=== PATIENT | female | born 1995 | race Caucasian/White ===

== ENCOUNTER 2016-11-05 22:48 | Emergency (ER) | payer OTHER ==
[2016-11-05 23:11] VITALS: BP 101/50; PULSE 61; TEMP 98.9; BMI 27.9
[2016-11-06 00:28] LABS: BASOPHIL 0.9 % (0-2.0); EOSINOPHIL 4.2 % (0-4.5); MCH 31.6 pg (25.7-33.7); MCHC 34.1 g/dl (32.0-36.0); MEAN CELL VOLUME 92.5 fl (80-96); MEAN PLT VOLUME 9.2 fl (7.5-11.1); PLATELET COUNT 253 K/MM3 (134-434); RDW 13.6 % (11.6-15.6); WHITE BLOOD COUNT 6.9 K/mm3 (4.0-10.0)
[2016-11-06 00:35] LABS: URINE APPEARANCE CLEAR; URINE BILIRUBIN NEGATIVE (NEGATIVE); URINE BLOOD 3+ (NEGATIVE); URINE COLOR LT. YELLOW; URINE GLUCOSE (UA) NEGATIVE (NEGATIVE); URINE KETONE NEGATIVE (NEGATIVE); URINE LEUK ESTERASE NEGATIVE (NEGATIVE); URINE NITRITE NEGATIVE (NEGATIVE); URINE PROTEIN NEGATIVE (NEGATIVE); URINE UROBILINOGEN 0.2 mg/dL (0.2-1.0)
[2016-11-06 00:42] LABS: URINE MUCUS RARE; URINE RBC 34 /hpf (0-3); URINE WBC 2 /hpf (3-5)
--- NOTE | 2016-11-06 01:28 | PDOC ---
History of Present Illness - General History Source: Patient Exam Limitations: No Limitations - History of Present Illness Initial Comments: 11/06/16 01:28 The patient is a 20-year-old female, with a significant past medical history, who presents to the ED with vaginal bleeding that began yesterday. The patient has been experiencing bleeding for the past couple of months. She visited her OB /SALES APPRENTICE doctor and had imaging done revealing two cysts; one on the right ovary and one on the left ovary. The imaging also revealed that she had a bleeding cyst. She is also undergoing further imaging to rule out if the bleeding cyst is malignant or not. What worried the patient yesterday was that the bleeding was much heavier than usual and the blood appeared to be bright red instead of dark red how it usually appears. Pt [facility] she was 2 weeks . Her last menstrual period was on October 13. She reports having some mild cramping which is normal for her when she experiences the bleeding. She denies any nausea, vomiting, or diarrhea. PCP: Dr. Spring <Mayi Cannon - Last Filed: 11/06/16 01:28> <Elvis Goodwin - Last Filed: 11/06/16 02:10> - General Chief Complaint: Vaginal Bleeding Stated Complaint: VAGINAL BLEEDING Time Seen by Provider: 11/05/16 23:23 Past History <Mayi Cannon - Last Filed: 11/06/16 01:28> - Past Medical History Other medical history: Pt denies - Immunization History Immunization Up to Date: Yes - Psycho/Social/Smoking Cessation Hx Anxiety: No Suicidal Ideation: No Smoking Status: Yes Smoking History: Never smoked Number of Cigarettes Smoked Daily: 1 Information on smoking cessation initiated: No Hx Alcohol Use: No Drug/Substance Use Hx: No Substance Use Type: None <Elvis Goodwin - Last Filed: 11/06/16 02:10> - Past Medical History Allergies/Adverse Reactions: Allergies Allergy/AdvReac Type Severity Reaction Status Date / Time No Known Allergies Allergy Verified 11/05/16 23:06 Home Medications: Ambulatory Orders NK [No Known Home Medication] 11/06/16 Review of Systems - Review of Systems Able to Perform ROS?: Yes Comments:: 11/06/16 01:29 GENERAL/CONSTITUTIONAL: No fever or chills. No weakness. HEAD, EYES, EARS, NOSE AND THROAT: No change in vision. No ear pain or discharge. No sore throat. CARDIOVASCULAR: No chest pain or shortness of breath. RESPIRATORY: No cough, wheezing, or hemoptysis. SKIN: No rash GASTROINTESTINAL:+cramping. No nausea, vomiting, diarrhea or constipation. GENITOURINARY:+vaginal bleeding. No dysuria, frequency, or change in urination. MUSCULOSKELETAL: No joint swelling or pain. No neck or back pain. NEUROLOGIC: No headache, vertigo, loss of consciousness, or change in strength/ sensation. ENDOCRINE: No increased thirst. No abnormal weight change. HEMATOLOGIC/LYMPHATIC: No anemia, easy bleeding, or history of blood clots. ALLERGIC/IMMUNOLOGIC: No hives or skin allergy. <Mayi Cannon - Last Filed: 11/06/16 01:28> *Physical Exam - Vital Signs Last Vital Signs Temp Pulse Resp BP Pulse Ox 98.9 F 61 18 101/50 98 11/05/16 23:07 11/05/16 23:07 11/05/16 23:07 11/05/16 23:07 11/05/16 23:07 - Physical Exam Comments: 11/06/16 01:30 GENERAL: Awake, alert, and fully oriented, in no acute distress HEAD: No signs of trauma ENT: Auricles normal inspection, hearing grossly normal, nares patent, oropharynx clear EYES: PERRLA, EOMI, sclera anicteric, conjunctiva clear without exudates. Moist mucosa. NECK: Normal ROM, supple, no lymphadenopathy, JVD, or masses LUNGS: Breath sounds equal, clear to auscultation bilaterally. No wheezes, and no crackles HEART: Regular rate and rhythm, normal S1 and S2, no murmurs, rubs or gallops ABDOMEN: Soft, nontender, normoactive bowel sounds. No guarding, no rebound. No masses EXTREMITIES: Normal range of motion, no edema. No clubbing or cyanosis. No cords, erythema, or tenderness NEUROLOGICAL: Cranial nerves II through XII grossly intact. Normal speech, normal gait SKIN: Warm, Dry, normal turgor, no rashes or lesions noted PELVIC EXAM: Cervix was closed. Little blood oozing from cervical os. No pooling of blood vaginal vault. Uterus was normal in size, no tenderness. No adnexal tenderness or fullness. <Mayi Cannon - Last Filed: 11/06/16 01:28> - Vital Signs Last Vital Signs Temp Pulse Resp BP Pulse Ox 98.9 F 61 18 101/50 98 11/05/16 23:07 11/05/16 23:07 11/05/16 23:07 11/05/16 23:07 11/05/16 23:07 <Elvis Goodwin - Last Filed: 11/06/16 02:10> ED Treatment Course - LABORATORY CBC & Chemistry Diagram: 11/06/16 00:13 - ADDITIONAL ORDERS Additional order review: Laboratory Results 11/06/16 11/06/16 00:15 00:13 Beta HCG, Quant 1.8 Urine Color Lt. yellow Urine Appearance Clear Urine pH 7.0 Urine Protein Negative Urine Glucose (UA) Negative Urine Ketones Negative Urine Blood 3+ H Urine Nitrite Negative Urine Bilirubin Negative Urine Urobilinogen 0.2 Ur Leukocyte Esterase Negative Urine RBC 34 Urine WBC 2 Ur Epithelial Cells Rare Urine Mucus Rare Urine HCG, Qual Negative 11/06/16 00:13 RBC 3.58 L MCV 92.5 MCHC 34.1 RDW 13.6 MPV 9.2 Neutrophils % 53.0 Lymphocytes % 35.0 Monocytes % 6.9 Eosinophils % 4.2 Basophils % 0.9 <Mayi Cannon - Last Filed: 11/06/16 01:28> - LABORATORY CBC & Chemistry Diagram: 11/06/16 00:13 - ADDITIONAL ORDERS Additional order review: Laboratory Results 11/06/16 11/06/16 00:15 00:13 Beta HCG, Quant 1.8 Urine Color Lt. yellow Urine Appearance Clear Urine pH 7.0 Urine Protein Negative Urine Glucose (UA) Negative Urine Ketones Negative Urine Blood 3+ H Urine Nitrite Negative Urine Bilirubin Negative Urine Urobilinogen 0.2 Ur Leukocyte Esterase Negative Urine RBC 34 Urine WBC 2 Ur Epithelial Cells Rare Urine Mucus Rare Urine HCG, Qual Negative 11/06/16 00:13 RBC 3.58 L MCV 92.5 MCHC 34.1 RDW 13.6 MPV 9.2 Neutrophils % 53.0 Lymphocytes % 35.0 Monocytes % 6.9 Eosinophils % 4.2 Basophils % 0.9 - RADIOLOGY Radiology Studies Ordered: Category Date Time Status TRANSVAGINAL US PREG [US] Stat Ultrasound 11/06/16 00:02 Ordered <Elvis Goodwin - Last Filed: 11/06/16 02:10> *DC/Admit/Observation/Transfer - Attestations Scribe Attestion: 11/06/16 01:31 Documentation prepared by Mayi Cannon, acting as medical research scientist for Elvis Goodwin MD. <Mayi Cannon - Last Filed: 11/06/16 01:28> - Discharge Dispostion Admit: No - Attestations Physician Attestion: 11/06/16 01:28 I, Dr. Elvis Goodwin, attest that this document has been prepared under my direction and personally reviewed by me in its entirety. I further attest, that it accurately reflects all work, treatment, procedures and medical decision -making performed by me. <Elvis Goodwin - Last Filed: 11/06/16 02:10> Diagnosis at time of Disposition: Inevitable complete miscarriage without complication - Discharge Dispostion Disposition: HOME Condition at time of disposition: Good - Referrals Referrals: Nikole Spring MD [Primary Care Provider] - Cadence Pitts MD [Staff Physician] - - Patient Instructions Printed Discharge Instructions: Miscarriage, DI for Miscarriage, Dealing With Miscarriage Additional Instructions: Sorry this happened...... Return to us if worse..... FOLLOW UP WITH YOUR OB DOCTOR to make sure everything is completed. Best- Dr. Elvis Goodwin
== END 2016-11-06 03:01 | disposition home or self-care (01) ==
LOC: JER 22:48
DX: O26.891 Other specified pregnancy related conditions, first trimester (principal); O03.9 Complete or unspecified spontaneous abortion without complication
CPT/HCPCS: 36415; 76817-TC; 81003; 81015; 84702; 84703; 85025; 86850; 86900; 86901; 99282-25

== ENCOUNTER → 2018-09-30 | Day surgery (SDC) | payer OTHER | END | disposition home or self-care (01) | LOC: JRADIR 09:23 | PROVIDERS: ATTEND Obstetrics & Gynecology | PROC: BU18YZZ Fluoroscopy of Uterus and Fallopian Tubes using Other Contrast (ICD-10-PCS; principal; 2018-09-30) | DX: N97.9 Female infertility, unspecified (principal) | CPT/HCPCS: 36415; 58340; 74740-TC-FY; 76000-TC-FY; 84702 ==

== ENCOUNTER 2019-03-08 23:15 | Emergency (ER) | payer OTHER ==
[2019-03-08 23:34] VITALS: BP 160/100; PULSE 104; TEMP 98.8; BMI 32.1
[2019-03-09] MEDS ORDERED: ACETAMINOPHEN 325 MG TABLET (FP) PO ONE (00:12)
--- NOTE | 2019-03-09 00:12 | PDOC ---
History of Present Illness - General Chief Complaint: Injury Stated Complaint: LACERATION Time Seen by Provider: 03/09/19 00:11 - History of Present Illness Initial Comments: Lenka Montoya is a 23yo otherwise healthy woman, currently 7wks , who presents with an injury to the right ear after a fall at home today. She reports that she was feeling nauseated, and she was trying to run to the bathroom. Her puppy got in the way, and she tripped and fell forward, striking her ear on the side of her stepson's crib. She denies LOC and was able to get up and ambulate immediate following the fall. She denies any injury to her abdomen, abdominal pain, vaginal bleeding, or any concerns about her current . Past History - Past Medical History Allergies/Adverse Reactions: Allergies Allergy/AdvReac Type Severity Reaction Status Date / Time No Known Allergies Allergy Verified 03/08/19 23:34 Home Medications: Ambulatory Orders NK [No Known Home Medication] 11/06/16 COPD: No Other medical history: DENIES - Reproductive History Therapeutic (s) & number: No - Immunization History Immunization Up to Date: Yes - Psycho Social/Smoking Cessation Hx Smoking Status: Yes Smoking History: Never smoked Have you smoked in the past 12 months: No Number of Cigarettes Smoked Daily: 1 Information on smoking cessation initiated: No Hx Alcohol Use: No Drug/Substance Use Hx: No Substance Use Type: None Review of Systems - Review of Systems Comments:: General: No fevers, no chills, no weight or appetite change, no malaise HEENT: No changes in vision, no changes in hearing, no congestion, no sore throat. See HPI CV: No chest pain, no palpitations, no LE edema Pulm: No SOB, no cough, no wheezing GI: No nausea or vomiting, no change in bowel habits, no melena : No frequency, no urgency, no dysuria Musc: No back pain, no joint swelling, no recent injury Skin: No rash, no lesions, no erythema Endo: No excessive thirst, no heat/cold intolerance Heme: No unusual bruising or bleeding, no swollen glands Neuro: No syncope, no numbness/tingling, no focal weakness Vasc: No claudication Psych: No recent change in mood, no SI or HI *Physical Exam - Vital Signs Last Vital Signs Temp Pulse Resp BP Pulse Ox 98.8 F 104 H 20 160/100 98 03/08/19 23:30 03/08/19 23:30 03/08/19 23:30 03/08/19 23:30 03/08/19 23:30 - Physical Exam General: Comfortable, no acute distress HEENT: PERRL, EOMI, MMM, voice normal. Rt upper pinna w/ [id number] laceration, approximately 1cm, no active bleeding, dried blood around ear. Cards: RRR, no murmur appreciated Pulm: Comfortable on room air, clear to auscultation bilaterally Abd: Soft, nontender, nondistended Ext: Atraumatic. No LE edema. ROM intact. WWP Skin: Normal color, no rashes or lesions Neuro: A&Ox3, CN grossly intact, normal speech, motor/sensory grossly intact and symmetric Psych: Mood appropriate to situation Procedures - Laceration/Wound Repair Right Ear Wound Length: to 2.5 cm Wound Explored: clean Wound's Depth, Shape: linear (Through and through laceration) Irrigated w/ Saline: Yes Betadine Prep: No Amount of Anesthetic (ccs): 2 Wound Debrided: None Wound Repaired With: Sutures Suture Size/Type: 5:0, proline Number of Sutures: 9 (5 anterior, 4 posterior) Layer Closure: No Sterile Dressing Applied: Yes Splint Applied: No (Pressure dressing applied) Medical Decision Making - Medical Decision Making 03/09/19 00:11 Lenka Montoya is a 23yo otherwise healthy woman, currently 7wks , who presents with an injury to the right ear after a mechanical fall at home. - Acetaminophen for pain - Ear lac will likely require repair. Plan to anesthetize and clean wound, will reassess - Preg US to ensure no injury to the - Pt reports tetanus updated when she had a dog bite several years ago. 03/09/19 02:23 - Ear laceration anestetized with 2cc of 2% lidocaine - Wound irrigated with copious sterile saline - Laceration re-examined. Noted to be a [id number] laceration to the right ear pinna, linear, approximately 1.3cm in length, with no active bleeding. Wound edges re-approximated without tension - Laceration sutured using 5-0 proline. 4 simple interrupted posteriorly, 5 simple interrupted stitches anteriorly. Pressure dressing applied with xeroform over laceration, dry gauze around ear, SEAN wrap placed. - Pt taken for US given fall. US completed, IUP visualized, FHR 158, gestational age 7w0d. Waiting for final read. Plan to d/c home with ENT follow up pending read 03/09/19 02:43 - Radiology report agrees w/ ED read of US - Discussed home care, laceration care instructions, importance of ENT follow up at length. Pt states understanding and agreement. Will discharge home. Discussed with Dr Juan Wolfe PGY2 Discharge - Discharge Information Problems reviewed: Yes Clinical Impression/Diagnosis: Laceration of auricle of right ear Qualifiers: Encounter type: initial encounter Qualified Code(s): S01.311A - Laceration without foreign body of right ear, initial encounter Condition: Stable Disposition: HOME - Admission No - Follow up/Referral Referrals: Henok Ham MD [Staff Physician] - - Patient Discharge Instructions Patient Printed Discharge Instructions: DI for Laceration Repair Additional Instructions: Discharge Instructions: You were seen in the emergency department with a laceration to your right ear. The laceration was repaired with 9 stitches total (4 in the back, 5 in the front ) Home Care: - You should avoid getting the wound wet and keep your pressure dressing in place until you are seen by ENT (hearing impaired teacher). - Once you see ENT, you may wash your hair and shower normally. It is OK to use a plain soap and allow water to run over the wound. Do not scrub at the wound, and pat dry after washing. Do not rub with a towel. - Do not apply any lotions, ointments, creams or other topical medications to the wound - Some redness and swelling is expected after an injury. You may see a small amount of bleeding or pinkish drainage on the bandage when you remove it. This is normal. - You may use acetaminophen (Tylenol) 650-1000mg every 6-8 hours as needed for pain. Follow Up: - Make an appointment to follow up with an ENT specialist within the next 4-5 days. You have been given contact information for Dr Ham. - Follow the ENT doctor's instructions about when your stitches should be removed. It is usually about 7 days. - Seek immediate medical care if your wound becomes significantly more painful, swollen, red, you have a large amount of thick drainage, you have fevers to 101F or higher, or you have red streaking from the wound. - Post Discharge Activity
--- NOTE | 2019-03-09 00:16 | PDOC ---
Attending Attestation - Resident Resident Name: Juju Wolfe - ED Attending Attestation I have performed the following: I have examined & evaluated the patient, The case was reviewed & discussed with the resident, I agree w/resident's findings & plan, Exceptions are as noted - HPI HPI: 03/09/19 01:10 Ms. Montoya is a 23-year-old female presenting to the emergency department status post a fall from standing height. Patient states she was in her usual state of health, currently has morning sickness because she is 7 weeks . She was in route to the bathroom tripped and struck the left side of her face and ear. No loss of consciousness. No amnesia. Patient states that the age of the baby's crib struck her left ear. - Physicial Exam PE: 03/09/19 00:16 GENERAL: The patient is in no acute distress. HEENT: EOMI, PERRLA, moist mucous membranes. NECK: Normal range of motion, supple, no midline tenderness LUNGS: Breath sounds equal, clear to auscultation bilaterally. No wheezes, and no crackles. HEART:Regular rate and rhythm, normal S1 and S2 without murmur, rub or gallop. ABDOMEN: Soft, nontender, normoactive bowel sounds. EXTREMITIES: Normal range of motion, no edema. NEUROLOGICAL: Cranial nerves II through XII grossly intact. Normal speech. No focal neurological deficits. SKIN: Pinna of the left ear with laceration that is through cartilage, no active bleeding 03/09/19 01:11 - Medical Decision Making 03/09/19 01:11 Ms. Montoya is a 23-year-old female presenting to the emergency department with a injury to her left pinna Patient is currently 7 weeks Status post fall We will do: Transvaginal ultrasound -assess Suture repair Boostrix ABX D/c with ENT Follow up
[2019-03-09] MEDS ORDERED: ACETAMINOPHEN 325 MG TABLET (FP) ONE (00:21)
== END 2019-03-09 02:56 | disposition home or self-care (01) ==
LOC: JER 23:15
PROC: 0HQ2XZZ Repair Right Ear Skin, External Approach (ICD-10-PCS; principal; 2019-03-08)
DX: O26.891 Other specified pregnancy related conditions, first trimester (principal); S01.311A Laceration without foreign body of right ear, initial encounter
CPT/HCPCS: 76801-TC; 99283-25

== ENCOUNTER 2019-10-20 19:20 | Inpatient (IN) | payer OTHER ==
[2019-10-20 21:32] VITALS: BMI 38.9
--- NOTE | 2019-10-20 21:51 | HP ---
Past Medical History - Primary Care Physician PCP:: Lashay Madera - Admission Chief Complaint: Induction of labor History of Present Illness: 23 yo EDC 10/23/2019 EGA 39 weeks admitted for induction of labor +obesity History Source: Patient Limitations to Obtaining History: No Limitations - Past Medical History ...: 2 ...Para: 0 ...Term: 0 ...: 0 ...Spon : 1 ...Induced : 0 ...Living Children: 0 ...Multiple Gestation: 0 ...LMP: 01/13/19 ... Weeks Gestation by Dates: 39.4 ...EDC by Dates: 10/23/19 - Past Surgical History Past Surgical History: Yes: None Hx Myomectomy: No Hx Transabdominal Cerclage: No - Smoking History Smoking history: Former smoker Have you smoked in the past 12 months: Yes Aproximately how many cigarettes per day: 4 If you are a former smoker, when did you quit?: 03/2019 - Alcohol/Substance Use Hx Alcohol Use: No History of Substance Use: reports: None - Social History Usual Living Arrangement: Yes: With Spouse Do you think of yourself as: Straight/Heterosexual History of Recent Travel: No Home Medications - Allergies Allergies/Adverse Reactions: Allergies Allergy/AdvReac Type Severity Reaction Status Date / Time No Known Allergies Allergy Verified 03/08/19 23:34 - Home Medications Home Medications: Ambulatory Orders Ibuprofen [Motrin -] 600 mg PO QID #28 tablet 10/21/19 Amox-Tr/K Cl [Augmentin - 500Mg Tablet] 1 tab PO BID #14 tab 10/23/19 Review of Systems - Review of Systems Constitutional: reports: No Symptoms Eyes: reports: No Symptoms HENT: reports: No Symptoms Neck: reports: No Symptoms Cardiovascular: reports: No Symptoms Respiratory: reports: No Symptoms Gastrointestinal: reports: No Symptoms Genitourinary: reports: No Symptoms Breasts: reports: No Symptoms Reported Musculoskeletal: reports: No Symptoms Integumentary: reports: No Symptoms Neurological: reports: No Symptoms Endocrine: reports: No Symptoms Hematology/Lymphatic: reports: No Symptoms Psychiatric: reports: No Symptoms Physical Exam - Maternity Vital Signs: Vital Signs Temperature 98.6 F 10/20/19 19:20 Pulse Rate 89 10/20/19 21:00 Respiratory Rate 20 20 21:00 Blood Pressure 113/66 10/20/19 21:00 O2 Sat by Pulse Oximetry (%) 100 10/20/19 19:20 Constitutional: Yes: Well Nourished, No Distress Neck: Yes: WNL Lungs: Clear to auscultation Breast(s): Yes: WNL - Abdominal Exam/OB Fundal Height: 39 Number of Fetuses: Single Presentation: Vertex Contractions: No Monitor Mode: External Category: I - Vaginal Exam/OB Dilatation (cm): closed Amniotic Membrane Status: Intact Presentation: Vertex/Position - Physical Exam Musculoskeletal: Yes: WNL Extremities: Yes: WNL Edema: No Psychiatric: Yes: WNL, Alert, Oriented Hemorrhage Risk Assessment - Risk Factors Risk Score: 0 Risk Level: Low Risk Problem List - Problems (1) Elective induction of labor planned Assessment/Plan: 39 week induction Problems reviewed: Yes Code(s): [id number] - (2) 39 weeks gestation of Problems reviewed: Yes Code(s): Z3A.39 - 39 WEEKS GESTATION OF Assessment/Plan IUP at 39.3 week induction of labor Plan Cervidil
[2019-10-20] MEDS ORDERED: DINOPROSTONE 10 MG VAGINAL SUPPOSITORY VG ONE (21:53)
[2019-10-20] MEDS: ELECTROLYTE-148 SOLN 1,000 ML IV SCH (22:00)
--- NOTE | 2019-10-20 22:00 | PD.OB.PROG ---
Past Medical History - Primary Care Physician PCP:: Lashay Madera Documenting Provider Type: Laborist (for induction.) - Admission Chief Complaint: Induction History of Present Illness: First , 39.4 wks History Source: Medical Record Limitations to Obtaining History: Poor Historian - Nursing Documentation Maternal Triage Index: Maternal Triage Index ( Priority 5, Requesting MFTI) Hemorrhage Risk Assessment: Risk Level Low Risk High Level Risk Factors for None Hemorrhage Medium Level Risk Factors for None of the above Hemorrhage Low Level Risk Factors for Espinal Pregnaancy Hemorrhage Nursing Documentation Reviewed: Yes - 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 Weeks Gestation by Dates: 39.4 ...EDC by Dates: 10/23/19 Heme/Onc: Denies/None Infectious Disease: Denies/None Psych: Denies/None Musculoskeletal: Denies/None Rheumatology: Denies/None ENT: Denies/None Endocrine: Denies/None Dermatology: Denies/None - Past Surgical History Past Surgical History: No: None, AAA Repair, AICD, Amputation, Appendectomy, Arthrosocopy, AV Fistula/Graft, Bariatric Surgery, Breast Biopsy, Bypass, CABG, Carotid Endarterectomy, Cataract Removal, Cholecystectomy, Colectomy, Colonoscopy, Colostomy, Craniotomy, , Cystectomy, Hernia Repair, Hysterectomy, Ileal Conduit, Ileosotomy, Joint Replacement, Kidney Transplant, Laminectomy, Liver Transplant, Mastectomy, Nephrectomy, Oopherectomy, Orchiectomy, Permanent Pacemaker, Prostatectomy, Splenectomy, Stent, Thoracotomy, TURP, Tonsillectomy, Tubal Ligation, Upper Endoscopy, Valve Replacement, Vasectomy, Vein Stripping/Ligation - Smoking History Smoking history: Former smoker Have you smoked in the past 12 months: Yes Aproximately how many cigarettes per day: 4 If you are a former smoker, when did you quit?: 03/2019 - Alcohol/Substance Use Hx Alcohol Use: No Review of Systems - Review of Systems Constitutional: reports: No Symptoms Eyes: reports: No Symptoms HENT: reports: No Symptoms Neck: reports: No Symptoms Cardiovascular: reports: No Symptoms Respiratory: reports: No Symptoms Gastrointestinal: reports: No Symptoms Genitourinary: reports: No Symptoms Breasts: reports: No Symptoms Reported Musculoskeletal: reports: No Symptoms Integumentary: reports: No Symptoms Neurological: reports: No Symptoms Endocrine: reports: No Symptoms Hematology/Lymphatic: reports: No Symptoms Psychiatric: reports: No Symptoms Physical Exam - Obstetrical Vital Signs: Vital Signs Temperature 98.6 F 10/20/19 19:20 Pulse Rate 89 10/20/19 21:00 Respiratory Rate 20 10/20/19 21:00 Blood Pressure 113/66 10/20/19 21:00 O2 Sat by Pulse Oximetry (%) 100 10/20/19 19:20 Constitutional: Yes: Well Nourished, No Distress, Calm Eyes: Yes: WNL, Conjunctiva Clear, EOM Intact HENT: Yes: WNL, Atraumatic, Normocephalic Neck: Yes: WNL, Supple, Trachea Midline Cardiovascular: Yes: WNL, Regular Rate and Rhythm Lungs: Clear to auscultation Breast(s): Yes: WNL - Abdominal Exam/OB Fundal Height: 40 Number of Fetuses: Single Presentation: Vertex Contractions: No Monitor Mode: External Heart Rate (range): 135 Heart Rate Location: [facility] Category: I Accelerations: Uniform Decelerations: None - Vaginal Exam/OB Vaginal Exam Deferred: No Vaginal Bleeding: No Dilatation (cm): 0 Effacement (%): 0 Amniotic Membrane Status: Intact Presentation: Vertex/Position Station: -2 - Physical Exam Musculoskeletal: Yes: WNL Extremities: Yes: WNL Integumentary: Yes: WNL ...Motor Strength: WNL Psychiatric: Yes: WNL Problem List - Problems (1) Elective induction of labor planned Code(s): [id number] - Assessment/Plan reviewed findings. Agree with the plan. Pt. is aware. Cervidil placed at 21:30 hrs. Follow protocol.
[2019-10-20 22:46] LABS: BASO % 0.5 % (0-2.0); EOS % 1.5 % (0-4.5); HEMATOCRIT 29.3 % (32.4-45.2); HEMOGLOBIN 9.6 GM/dL (10.7-15.3); LYMPH % 15.4 % (8-40); MCH 29.2 pg (25.7-33.7); MCHC 32.9 g/dl (32.0-36.0); MEAN CELL VOLUME 88.9 fl (80-96); MEAN PLT VOLUME 9.3 fl (7.5-11.1); MONO % 5.6 % (3.8-10.2); PLATELET COUNT 262 K/MM3 (134-434); RBC 3.29 M/mm3 (3.60-5.2); RDW 15.2 % (11.6-15.6); WHITE BLOOD COUNT 13.3 K/mm3 (4.0-10.0)
[2019-10-20 22:54] LABS: INR 0.91 (0.83-1.09); PROTHROMBIN TIME (PATIENT) 10.7 SEC (9.7-13.0)
[2019-10-20 22:56] LABS: ACTIVATED PTT 26.9 SECONDS (25.2-36.5)
[2019-10-20 23:17] LABS: BLOOD UREA NITROGEN 7.4 mg/dL (7-18); CALCIUM 8.8 mg/dL (8.5-10.1); CREATININE 0.5 mg/dL (0.55-1.3); POTASSIUM 3.9 mmol/L (3.5-5.1)
[2019-10-21] MEDS ORDERED: PROMETHAZINE HCL 25 MG/1 ML VIAL ONE (02:52)
[2019-10-21] MEDS ORDERED: BUTORPHANOL TARTRATE 2 MG/ML VIAL ONE (02:52)
[2019-10-21] MEDS: ELECTROLYTE-148 SOLN 1,000 ML IV SCH ×2 (03:00→23:47)
[2019-10-21] MEDS ORDERED: PROMETHAZINE HCL 25 MG/1 ML VIAL IVPB ONE (03:00)
[2019-10-21] MEDS ORDERED: BUTORPHANOL TARTRATE 2 MG/ML VIAL IVPB ONE (03:00)
[2019-10-21] MEDS ORDERED: FENTANYL/BUPIVACAINE/NS/PF - PCEA - 50 ML DISP.SYRIN EP ONE ×3 (08:32→16:09)
[2019-10-21] MEDS ORDERED: NALOXONE HCL 0.4 MG/ML VIAL IVPUSH PRN (09:12)
[2019-10-21] MEDS ORDERED: FENTANYL/BUPIVACAINE/NS/PF - PCEA - 50 ML DISP.SYRIN EP SCH (09:15)
[2019-10-21] MEDS ORDERED: OXYTOCIN 30 UNITS in 0.9% NS 30 UNIT/500 ML INFUS.BAG IVPB SCH (10:30)
--- NOTE | 2019-10-21 10:30 | PN ---
Ante-Partal Exam - Subjective Subjective: Pt sp epidural Vital Signs: Vital Signs Temperature 98.3 F 10/21/19 06:00 Pulse Rate 94 H 10/21/19 09:45 Respiratory Rate 18 10/21/19 09:45 Blood Pressure 106/48 L 10/21/19 09:45 O2 Sat by Pulse Oximetry (%) 99 10/21/19 09:45 - Contractions Contractions: Yes - Exam during Labor Heart Rate Location: [facility] Category: I Monitor Decelerations: None Exam: Vaginal Dilatation (cm): 4 Effacement (%): 100 Amniotic Membrane Status: Intact Presentation: Vertex Station: -1 - Intrapartum Hemorrhage Risk Risk Score: 0 Risk Level: Low Risk - Assessment/Plan Assessment/Plan: prodromal labor 39+ weeks Cat 1 plan Pitocin aug if tracing cat 1
[2019-10-21] MEDS ORDERED: OXYTOCIN 30 UNITS in 0.9% NS 30 UNIT/500 ML INFUS.BAG IVPB ONE (11:55)
[2019-10-21] MEDS ORDERED: PCA PUMP NR ONE (12:13)
[2019-10-21] MEDS ORDERED: AMPICILLIN SODIUM 2 GM VIAL ONE (17:06)
--- NOTE | 2019-10-21 17:26 | PN ---
Ante-Partal Exam - Subjective Vital Signs: Vital Signs Temperature 98.6 F 10/21/19 17:00 Pulse Rate 93 H 10/21/19 15:45 Respiratory Rate 18 10/21/19 15:45 Blood Pressure 107/46 L 10/21/19 15:45 O2 Sat by Pulse Oximetry (%) 100 10/21/19 15:45 Bleeding: No Headache: No Visual changes: No Right upper quadrant pain: No - Contractions Contractions: Yes - Exam during Labor Category: I Monitor Decelerations: None Exam: Vaginal Dilatation (cm): 8 Amniotic Membrane Status: Intact Presentation: Vertex Station: -1 - Intrapartum Hemorrhage Risk Risk Score: 0 Risk Level: Low Risk - Assessment/Plan Assessment/Plan: active labor 39 week gbs psoitive plan ampicillin
[2019-10-21] MEDS ORDERED: AMPICILLIN - 2 GM in SODIUM CHLORIDE 100 ML IVPB ONE (17:30)
[2019-10-21] MEDS ORDERED: OXYTOCIN 20 UNITS in 0.9% NS 20 UNIT/1,000 ML INFUS.BAG IV ONE ×2 (18:47→21:20)
[2019-10-21] MEDS ORDERED: BISACODYL 10 MG SUPP.RECT PR PRN (19:50)
[2019-10-21] MEDS ORDERED: WITCH HAZEL 50% (TUCKS) 40 PAD/JAR PAD TP PRN (19:50)
[2019-10-21] MEDS ORDERED: BENZOCAINE 28 GM HEMORRHOIDAL OINTMENT PR PRN (19:50)
[2019-10-21] MEDS ORDERED: METHYLERGONOVINE MALEATE 0.2 MG/1 ML AMP IM PRN (19:50)
[2019-10-21] MEDS ORDERED: BENZOCAINE 20% 57 GM BOTTLE TP PRN (19:50)
--- NOTE | 2019-10-21 19:54 | PN ---
Ante-Partal Exam - Subjective Subjective: Pt with urge to push Vital Signs: Vital Signs Temperature 99.0 F 10/21/19 18:00 Pulse Rate 95 H 10/21/19 19:15 Respiratory Rate 20 10/21/19 19:15 Blood Pressure 107/53 L 10/21/19 19:15 O2 Sat by Pulse Oximetry (%) 100 10/21/19 19:15 Bleeding: No Headache: No Visual changes: No Right upper quadrant pain: No - Contractions Contractions: Yes Regularity: Regular Monitor Mode: External - Exam during Labor Variability: Moderate Category: I Monitor Accelerations: Present Monitor Decelerations: Variable Exam: Vaginal Dilatation (cm): 10 Effacement (%): 90 Amniotic Membrane Status: Ruptured Amniotic Fluid: Clear Presentation: Vertex Station: +1 - Intrapartum Hemorrhage Risk Risk Score: 0 Risk Level: Low Risk - Assessment/Plan Assessment/Plan: Active labor Cat 2 Plan anticipate vaginal delivery
[2019-10-21] MEDS ORDERED: OXYTOCIN 20 UNITS in 0.9% NS 20 UNIT/1,000 ML INFUS.BAG IV SCH (20:00)
--- NOTE | 2019-10-21 20:25 | PN ---
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
[2019-10-21] MEDS ORDERED: IBUPROFEN 600 MG TABLET (FP) PO ONE (20:44)
[2019-10-21] MEDS ORDERED: ACETAMINOPHEN 325 MG TABLET (FP) ONE (20:44)
[2019-10-21] MEDS: ACETAMINOPHEN 325 MG TABLET (FP) PO PRN (20:50)
[2019-10-21] MEDS: IBUPROFEN 600 MG TABLET (FP) PO PRN (20:50)
[2019-10-21 21:29] LABS: CORD BASE EXCESS -9.1 mmol/L (0-2); CORD HCO3 15.6 mmHg (20-29); CORD PCO2 31.2 mmHg (30-78); CORD pH 7.318 (7.14-7.44)
[2019-10-21 21:31] LABS: CORD HCO3 17.2 mmHg (20-29); CORD PCO2 34.5 mmHg (30-78); CORD pH 7.316 (7.14-7.44)
[2019-10-21 23:17] LABS: BASO % 0.3 % (0-2.0); HEMATOCRIT 29.3 % (32.4-45.2); HEMOGLOBIN 9.7 GM/dL (10.7-15.3); LYMPH % 5.1 % (8-40); MCH 29.5 pg (25.7-33.7); MCHC 32.9 g/dl (32.0-36.0); MEAN CELL VOLUME 89.4 fl (80-96); MEAN PLT VOLUME 9.3 fl (7.5-11.1); MONO % 3.9 % (3.8-10.2); NEUT % 90.7 % (42.8-82.8); PLATELET COUNT 243 K/MM3 (134-434); RBC 3.28 M/mm3 (3.60-5.2); RDW 15.5 % (11.6-15.6); WHITE BLOOD COUNT 24.6 K/mm3 (4.0-10.0)
[2019-10-21] MEDS ORDERED: oxyCODONE HCL 5 MG TABLET PO ONE (23:30)
[2019-10-21] MEDS: AMPICILLIN - 1 GM in SODIUM CHLORIDE 100 ML IVPB SCH (23:47)
[2019-10-22] MEDS ORDERED: AMPICILLIN SODIUM 1 GM VIAL ONE ×5 (00:52→18:02)
[2019-10-22] MEDS ORDERED: SODIUM CHLORIDE 100 ML IVPB ONE ×5 (00:52→18:02)
[2019-10-22] MEDS: AMPICILLIN - 1 GM in SODIUM CHLORIDE 100 ML IVPB SCH ×5 (01:15→18:05)
[2019-10-22] MEDS: ACETAMINOPHEN 325 MG TABLET (FP) PO PRN ×3 (01:16→23:20)
[2019-10-22] MEDS: IBUPROFEN 600 MG TABLET (FP) PO PRN ×3 (01:17→23:20)
[2019-10-22 03:26] LABS: PLATELET ESTIMATE ADEQUATE
[2019-10-22 09:14] LABS: BASO % 0.3 % (0-2.0); EOS % 0.2 % (0-4.5); HEMATOCRIT 25.7 % (32.4-45.2); HEMOGLOBIN 8.4 GM/dL (10.7-15.3); LYMPH % 10.2 % (8-40); MCHC 32.7 g/dl (32.0-36.0); MEAN CELL VOLUME 88.7 fl (80-96); MONO % 5.5 % (3.8-10.2); NEUT % 83.8 % (42.8-82.8); PLATELET COUNT 216 K/MM3 (134-434); RDW 15.5 % (11.6-15.6); WHITE BLOOD COUNT 20.2 K/mm3 (4.0-10.0)
[2019-10-22 09:59] LABS: ANISOCYTOSIS 0; MACROCYTOSIS 0; PLATELET ESTIMATE NORMAL
--- NOTE | 2019-10-22 10:48 | PN ---
Post Progress Note - Subjective Subjective: 23 yo Para 1 status post vaginal delivery, seen and evaluated. Doing well. She c/o perineal pain. Post Day: 1 Type of Delivery: Vital Signs: Vital Signs Temperature 97.7 F 10/22/19 06:19 Pulse Rate 85 10/22/19 06:19 Respiratory Rate 20 10/22/19 06:19 Blood Pressure 104/72 10/22/19 06:19 O2 Sat by Pulse Oximetry (%) 97 10/22/19 03:40 Breast Exam: Yes: Soft Uterus: Yes: Fundus Firm Abdomen/GI: Yes: Abdomen soft, Tolerating PO Lochia: Yes: Rubra Lochia, amount: Moderate Perineum: Yes: Episiotomy (healing) Activity: Other (She's lying in bed) - Labs Labs: CBC WBC 20.2 K/mm3 (4.0-10.0) H 10/22/19 08:08 RBC 2.90 M/mm3 (3.60-5.2) L 10/22/19 08:08 Hgb 8.4 GM/dL (10.7-15.3) L 10/22/19 08:08 Hct 25.7 % (32.4-45.2) L 10/22/19 08:08 MCV 88.7 fl (80-96) 10/22/19 08:08 MCH 29.0 pg (25.7-33.7) 10/22/19 08:08 MCHC 32.7 g/dl (32.0-36.0) 10/22/19 08:08 RDW 15.5 % (11.6-15.6) 10/22/19 08:08 Plt Count 216 K/MM3 (134-434) 10/22/19 08:08 MPV 9.0 fl (7.5-11.1) 10/22/19 08:08 Absolute Neuts (auto) 16.9 K/mm3 (1.5-8.0) H 10/22/19 08:08 Total Counted 100 10/21/19 22:45 Neutrophils % 83.8 % (42.8-82.8) H 10/22/19 08:08 Neutrophils % (Manual) 78.3 % (42.8-82.8) 10/22/19 08:08 Band Neutrophils % 2.1 % 10/22/19 08:08 Lymphocytes % 10.2 % (8-40) D 10/22/19 08:08 Lymphocytes % (Manual) 12.4 % (8-40) D 10/22/19 08:08 Monocytes % 5.5 % (3.8-10.2) 10/22/19 08:08 Monocytes % (Manual) 5 % (3.8-10.2) 10/22/19 08:08 Eosinophils % 0.2 % (0-4.5) D 10/22/19 08:08 Eosinophils % (Manual) 0.0 % (0-4.5) 10/22/19 08:08 Basophils % 0.3 % (0-2.0) 10/22/19 08:08 Basophils % (Manual) 1.0 % (0-2.0) 10/22/19 08:08 Myelocytes % (Man) 0 % (0-2) 10/22/19 08:08 Promyelocytes % (Man) 0 % (0-2) 10/22/19 08:08 Blast Cells % (Manual) 0 % (0-0) 10/22/19 08:08 Nucleated RBC % 0 % (0-0) 10/22/19 08:08 Metamyelocytes 0 % (0-2) 10/22/19 08:08 Hypochromia 0 10/22/19 08:08 Platelet Estimate Normal 10/22/19 08:08 Platelet Comment No clumping noted 10/21/19 22:45 Platelet Comment Large platelets 10/21/19 22:45 Polychromasia 0 10/22/19 08:08 Anisocytosis 0 10/22/19 08:08 Microcytosis 0 10/22/19 08:08 Macrocytosis 0 10/22/19 08:08 Problem List - Problems (1) Status post normal vaginal delivery Code(s): [id number] - Assessment/Plan Status post vaginal delivery Stable Continue routine care
[2019-10-23] MEDS: ACETAMINOPHEN 325 MG TABLET (FP) PO PRN (09:29)
[2019-10-23] MEDS: IBUPROFEN 600 MG TABLET (FP) PO PRN (09:29)
--- NOTE | 2019-10-23 09:39 | DS ---
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 Signs: Vital Signs Temperature 98.1 F 10/23/19 02:00 Pulse Rate 105 H 10/22/19 20:30 Respiratory Rate 20 10/22/19 20:30 Blood Pressure 99/63 10/22/19 20:30 O2 Sat by Pulse Oximetry (%) 97 10/22/19 03:40 Constitutional: Yes: Well Nourished, No Distress Neck: Yes: WNL Cardiovascular: Yes: WNL Gastrointestinal: Yes: WNL, Soft ....Post : Yes: Uterus firm, Uterus non-tender Breast(s): Yes: WNL Musculoskeletal: Yes: WNL Extremities: Yes: WNL Neurological: Yes: WNL, Alert, Oriented Labs: CBC, BMP 10/22/19 08:08 10/20/19 22:15 Delivery - Delivery Vaginal Delivery: No Problems (mediolateral) Type of Anesthesia: Epidural Episiotomy/Laceration: Right Mediolateral EBL (cc): 600 (methergin given an fundal massage) Delivery, Single - Stages of Labor Date 1st Stage Initiatied: 10/21/19 Time 1st Stage Initiated: 08:30 Date 2nd Stage Initiated: 10/21/19 Time 2nd Stage Initiated: 19:30 Date of Delivery: 10/21/19 Time of Delivery: 20:05 Time Placenta Delivered: 20:14 Placenta: Yes: Manual Removal - Condition of Infant 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 Present: No Infant Gender: Female Weight: 7 lb 13 oz Position: OA Total Hours ROM (Hrs/Mins): 35 MINUTES - 1 Minute Total Score: 9 5 Minutes Total Score: 9 - Feeding Plan Initial Plan: Elected not to breastfeed exclusively throughout hospitalization Discharge Summary Problems reviewed: Yes Reason For Visit: INDUCTION OF LABOR Current Active Problems 39 weeks gestation of (Acute) Elective induction of labor planned (Acute) Status post normal vaginal delivery (Acute) Procedures: Principal: Normal vaginal delivery Hospital Course: unremarkable Condition: Good - Instructions Diet, Activity, Other Instructions: Physical activity Resume your normal everyday activity as tolerated no heavy lifting or exercise until seen by your surgeon. You may walk unlimited elyssa of and climb stairs. You may resume driving the car when you feel safe and comfortable behind the wheel. No sexual activity as instructed. Wound care If you have a bandage, leave it on, and keep dry for 48-72 hours. After that time discard the outer bandage. If they are tapes on the skin under the out of bandage leave them in place. They will peel off in the next 7 to 10 days. Do Not Peel them off. You may shower the day after surgery. If there are tapes present on the skin, you may shower over them. Diet There are no dietary restrictions. Eat healthy, high-fiber foods. Drink 6 to 8 glasses of liquid each day. This will assist in keeping your bowels are regular. Pain management You may take Tylenol or acetaminophen or Ibuprofen (for example, Motrin, Advil etc.) from my pain prescription medication is ordered should be taken as prescribed for moderate to severe pain. Call MD for any of the following: Severe pain not relieved by medication Fever of 101 or higher Excessive bleeding or drainage on dressing Inability to urinate Referrals: Lashay Madera MD [Staff Physician] - Disposition: HOME - Home Medications Comprehensive Discharge Medication List: Ambulatory Orders Ibuprofen [Motrin -] 600 mg PO QID #28 tablet 10/21/19 Amox-Tr/K Cl [Augmentin - 500Mg Tablet] 1 tab PO BID #14 tab 10/23/19
[2019-10-23 10:06] LABS: BASO % 0.5 % (0-2.0); EOS % 1.7 % (0-4.5); HEMATOCRIT 25.2 % (32.4-45.2); HEMOGLOBIN 8.2 GM/dL (10.7-15.3); LYMPH % 15.9 % (8-40); MCH 28.8 pg (25.7-33.7); MCHC 32.4 g/dl (32.0-36.0); MEAN CELL VOLUME 88.7 fl (80-96); NEUT % 77.9 % (42.8-82.8); PLATELET COUNT 241 K/MM3 (134-434); RBC 2.84 M/mm3 (3.60-5.2); RDW 15.7 % (11.6-15.6); WHITE BLOOD COUNT 14.4 K/mm3 (4.0-10.0)
[2019-10-23] MEDS ORDERED: AMOX TR/POT CLAV 875MG/125MG TABLETS (FP) PO ONE (10:15)
[2019-10-23 13:29] VITALS: BP 111/73; PULSE 101; TEMP 98.3
== END 2019-10-23 13:00 | disposition home or self-care (01) | DRG 560 ==
LOC: JLDR 19:20 → J3W 10-21 23:30
PROVIDERS: ADMIT Obstetrics & Gynecology; ATTEND Obstetrics & Gynecology
PROC: 0W8NXZZ Division of Female Perineum, External Approach (ICD-10-PCS; principal; 2019-10-21)
PROC: 10E0XZZ Delivery of Products of Conception, External Approach (ICD-10-PCS; 2019-10-21)
DX: O99.824 Streptococcus B carrier state complicating childbirth (principal); Z3A.39 39 weeks gestation of pregnancy; Z37.0 Single live birth
CPT/HCPCS: 36415; 36600; 59409; 80048; 82803; 85025; 85610; 85730; 86780; 86850; 86900; 86901; 87389; U0003

== ENCOUNTER 2019-12-03 10:12 | Emergency (ER) | payer OTHER ==
[2019-12-03 10:23] VITALS: BP 129/65; PULSE 88; TEMP 98.3; BMI 38.9
[2019-12-03] MEDS ORDERED: LIDOCAINE 5% TOPICAL PATCH TP ONE (10:54)
[2019-12-03] MEDS ORDERED: NAPROXEN 500 MG TABLET PO ONE (10:54)
[2019-12-03] MEDS ORDERED: NAPROXEN 500 MG TABLET ONE (11:25)
[2019-12-03] MEDS ORDERED: LIDOCAINE 5% TOPICAL PATCH ONE (11:25)
--- NOTE | 2019-12-03 12:04 | PDOC ---
Documentation entered by Juan Luis Quan SCRIBE, acting as scribe for Neyda Morrell MD. Neyda Morrell MD: This documentation has been prepared by the Avelina gonzalez Xhesika, SCRIBE, under my direction and personally reviewed by me in its entirety. I confirm that the documentation accurately reflects all work, treatment, procedures, and medical decision making performed by me. History of Present Illness - General Chief Complaint: Nausea/Vomiting Stated Complaint: BACK PAIN Time Seen by Provider: 12/03/19 10:30 History Source: Patient Exam Limitations: No Limitations - History of Present Illness Initial Comments: 12/03/19 10:41 The patient is a 23y/o F who presents to the ED for 4-6 weeks of back spasms. Pt states she has been having back spasms since she delivered her daughter at the end of September, but the pain was so severe today. Pt describes her pain as severe, constant, non-radiating, worse with movement. Denies any new heavy lifting but has been lifting the baby and bending over to changer her diaper frequently. States the pain is waxing and waning since the of her daughter and was severe today which prompted her visit. Denies urinary/fecal incontinence or retention. Had 1 episode of vomiting in the ED when she was having her BP checked but denies nausea prior to entering the room and states nausea has res olved after the episode of vomiting and she is currently withouta ny GI complaints. Pt states she called her OBGYN who advised her to some to the ED for further evaluation. Pt denies any LE or UE numbness/ tingling. Denies any chest pain, SOB, headache, fever, chills, diarrhea. Allergies: NKDA PCP: Timbo Otoole Past History - Medical History Allergies/Adverse Reactions: Allergies Allergy/AdvReac Type Severity Reaction Status Date / Time No Known Allergies Allergy Verified 12/03/19 10:25 Home Medications: Ambulatory Orders Ibuprofen [Motrin -] 600 mg PO QID #28 tablet 10/21/19 Amox-Tr/K Cl [Augmentin - 500Mg Tablet] 1 tab PO BID #14 tab 10/23/19 Asthma: No Cancer: No Cardiac Disorders: No COPD: No Diabetes: No HTN: No Seizures: No Thyroid Disease: No - Reproductive History Is Patient Now?: No Therapeutic (s) & number: No - Immunization History Immunization Up to Date: Yes - Psycho-Social/Smoking History Smoking Status: Yes Smoking History: Never smoked Have you smoked in the past 12 months: Yes Number of Cigarettes Smoked Daily: 4 If you are a former smoker, when did you quit?: 03/2019 - Substance Abuse Hx (Audit-C & DAST Scrn) How often the patient has a drink containing alcohol: Never Score: In Men: 4 or > Positive; In Women: 3 or > Positive: 0 Screen Result (Pos requires Nsg. Audit-10AR): Negative In the last yr the pt used illegal drug/Rx for NonMed reason: No Score: Yes response is considered Positive: 0 Screen Result (Positive result requires Nsg. DAST-10): Negative Review of Systems - Review of Systems Able to Perform ROS?: Yes Comments:: 12/03/19 10:42 GENERAL/CONSTITUTIONAL: No fever or chills. No weakness. HEAD, EYES, EARS, NOSE AND THROAT: No change in vision. No ear pain or discharge. No sore throat. CARDIOVASCULAR: No chest pain or shortness of breath. RESPIRATORY: No cough, wheezing, or hemoptysis. GASTROINTESTINAL: +nausea, vomiting. No diarrhea or constipation. GENITOURINARY: No dysuria, frequency, or change in urination. MUSCULOSKELETAL: No joint or muscle swelling or pain. No neck pain.+back spasms/pain. NEUROLOGIC: No headache, vertigo, loss of consciousness, or change in strength/sensation. ENDOCRINE: No increased thirst. No abnormal weight change. HEMATOLOGIC/LYMPHATIC: No anemia, easy bleeding, or history of blood clots. ALLERGIC/IMMUNOLOGIC: No hives or skin allergy. *Physical Exam - Vital Signs Last Vital Signs Temp Pulse Resp BP Pulse Ox 98.3 F 88 18 129/65 100 12/03/19 10:19 12/03/19 10:19 12/03/19 10:12/03/19 10:12/03/19 10:19 - Physical Exam 12/03/19 11:58 GENERAL: Well appearing, in no acute distress HEENT: NCAT, conjunctiva not injected, MMM, EOMI NECK: Normal ROM, supple LUNGS: CTAB. Good air entry. No wheezes, No Rhonchi and no crackles HEART: RRR, + s1 s2, no murmurs, rubs or gallops ABDOMEN: Soft, nontender, normoactive bowel sounds. No guarding, no rebound. No masses BACK: no midline or paraspinal tenderness. No CVA tenderness. EXTREMITIES: Warm and well perfused. No LE edema. FROM. No clubbing or cyanosis. No cords, erythema, or tenderness, dosriflexion/plantarflexion 5/5 b/l, flexion/extension at knees and hips 5/5 b/l, hand paralegal secretary flexion/extension at elbows and wrists 5/5 b/l, shoulder shrug 5/5 NEUROLOGICAL: Aox3, Speech fluent, face symmetric, tongue/uvula midline. Sensation grossly intact to light touch. Ambulatory with steady gait. Strength intact. No focal deficits. SKIN: Warm, dry, normal turgor, no rashes or lesions noted. Medical Decision Making - Medical Decision Making 12/03/19 12:00 23 yo F with back pain since the of her daughter ~6 weeks ago, neurovascularly intact and no signs/symptoms concerning for cord compression. No fevers and no midline tenderness to suggest epidural abscess or hematoma. Likely muscle strain possibly 2/2 caretaking of and obesity. Plan: -pain control -hcg (pt with 1 episode of n/v, now symptom free) -reassess, if hcg negative will d/c with return precautions, recommend tylenol or motrin at home as needed for pain and PMD f/u This clinical encounter is taking place during a federal and state health care emergency attributable to the novel Xiong Virus pandemic. The [place] of the Department of Health and Human Services has declared, pursuant to the Public Health Service Act 319F-3 (42 U.S.C. 247d-6d), that a covered persons activities related to medical countermeasures against COVID-19 will be immune from liability under Federal and State law. Discharge - Discharge Information Problems reviewed: Yes Clinical Impression/Diagnosis: Back pain Qualifiers: Back pain location: back pain in unspecified location Chronicity: acute Back pain laterality: bilateral Qualified Code(s): M54.9 - Dorsalgia, unspecified Condition: Good Disposition: HOME - Admission No - Follow up/Referral Referrals: Timbo Sarmiento [Primary Care Provider] - - Patient Discharge Instructions Patient Printed Discharge Instructions: Low Back Pain (Alternative Therapy), DI for Low Back Pain Additional Instructions: Your test was negative. You can take tylenol or motrin at home as needed for pain. You should follow up with your PMD. Return to the ED for new or worsening symptoms. - Post Discharge Activity
[2019-12-03] MEDS ORDERED: LIDOCAINE PATCH REMOVAL MC SCH (22:00)
== END 2019-12-03 12:47 | disposition home or self-care (01) ==
LOC: JER 10:12
DX: M54.9 Dorsalgia, unspecified (principal)
CPT/HCPCS: 84703; 99283-25

== ENCOUNTER 2020-01-08 10:00 | Emergency (ER) | payer OTHER ==
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
--- NOTE | 2020-01-08 10:38 | TELE ---
HPI - General Reason For Visit: COVID 19 TEST History Source: Patient (24-year-old female with no past medical history presents to ED for Covid testing. Patient does state nasal congestion along with productive cough for the past week.) Exam Limitations: No Limitations - History of Present Illness Timing/Duration: 1 week Severity: reports: mild Associated Symptoms: reports: cough (productive), other (nasal congestion) Past History - Travel History Traveled outside of the country in the last 30 days: No Close contact w/someone who was outside of country & ill: No - Medical History Allergies/Adverse Reactions: Allergies Allergy/AdvReac Type Severity Reaction Status Date / Time No Known Allergies Allergy Verified 12/03/19 10:25 Home Medications: Ambulatory Orders Ibuprofen [Motrin -] 600 mg PO QID #28 tablet 10/21/19 Amox-Tr/K Cl [Augmentin - 500Mg Tablet] 1 tab PO BID #14 tab 10/23/19 Asthma: No Cancer: No Cardiac Disorders: No COPD: No Diabetes: No HTN: No Seizures: No Thyroid Disease: No - Reproductive History Therapeutic (s) & number: No - Immunization History Immunization Up to Date: Yes - Psycho-Social/Smoking History Patient Lives Alone: No Lives with/in: spouse/SO Smoking Status: Yes Smoking History: Current every day smoker (1-2 cigarettes/day) Have you smoked in the past 12 months: Yes Number of Cigarettes Smoked Daily: 4 If you are a former smoker, when did you quit?: 03/2019 Review of Systems - Review of Systems Able to Perform ROS?: Yes Limited Bermudian proficient: No Constitutional: No: Symptoms Reported HEENTM: Yes: Nose Congestion Respiratory: Yes: Cough, Productive cough Cardiac (ROS): No: Symptoms Reported ABD/GI: No: Symptoms Reported : No: Symptoms Reported Musculoskeletal: No: Symptoms Reported Integumentary: No: Symptoms Reported Neurological: No: Symptoms reported Endocrine: No: Symptoms Reported Hematologic/Lymphatic: No: Symptoms Reported *Physical Exam - Physical Exam General Appearance: Yes: Nourished, Appropriately Dressed. No: Apparent Distress HEENT: positive: EOMI Neck: negative: Decreased range of motion Respiratory/Chest: negative: Respiratory Distress, Accessory Muscle Use Cardiovascular: negative: Edema Gastrointestinal/Abdominal: negative: Distended Extremity: positive: Normal Inspection Integumentary: positive: Normal Color Neurologic: positive: Motor Strength 5/5 (Ambulatory) - Medical Decision Making 01/08/20 10:49 Chief complaint: Patient with nasal congestion and productive cough for the past week requesting Covid testing along with antibody testing. Exam: Limited but otherwise normal. Plan: Covid test along with antibody test ordered Discharge Diagnosis at time of Disposition: Encounter for screening laboratory testing for COVID-19 virus - Referrals Follow-up Referral(s): Timbo Sarmiento [Primary Care Provider] - - Patient Instructions - Discharge Disposition: HOME Condition at time of Disposition: Good
== END 2020-01-08 10:49 | disposition home or self-care (01) ==
LOC: JVIRT 10:00
DX: Z03.818 Encounter for observation for suspected exposure to other biological agents ruled out (principal); Z01.84 Encounter for antibody response examination
CPT/HCPCS: 36415; 86769; C9803; Q3014-GT; U0003

== ENCOUNTER 2021-02-23 07:35 | Inpatient (IN) | payer OTHER ==
[2021-02-23] MEDS ORDERED: OXYTOCIN 30 UNITS in 0.9% NS 30 UNIT/500 ML INFUS.BAG IVPB SCH (08:30)
[2021-02-23 08:54] VITALS: BMI 40.2
[2021-02-23] MEDS: ELECTROLYTE-148 SOLN 1,000 ML IV SCH ×2 (08:57→12:01)
[2021-02-23] MEDS ORDERED: OXYTOCIN 30 UNITS in 0.9% NS 30 UNIT/500 ML INFUS.BAG IVPB ONE (09:19)
[2021-02-23] MEDS ORDERED: AMPICILLIN SODIUM 2 GM VIAL ONE (09:35)
[2021-02-23] MEDS ORDERED: SODIUM CHLORIDE 100 ML IVPB ONE ×2 (09:35→13:34)
[2021-02-23] MEDS ORDERED: BUTORPHANOL TARTRATE 2 MG/ML VIAL ONE (09:45)
[2021-02-23] MEDS ORDERED: PROMETHAZINE HCL 25 MG/1 ML VIAL ONE (09:45)
[2021-02-23] MEDS ORDERED: BUTORPHANOL TARTRATE 2 MG/ML VIAL IVPB ONE (09:50)
[2021-02-23] MEDS ORDERED: PROMETHAZINE HCL 25 MG/1 ML VIAL IVPB ONE (09:50)
[2021-02-23] MEDS ORDERED: AMPICILLIN - 2 GM in SODIUM CHLORIDE 100 ML IVPB ONE (09:53)
[2021-02-23] MEDS ORDERED: FENTANYL/BUPIVACAINE/NS/PF - PCEA - 50 ML DISP.SYRIN EP ONE (10:13)
[2021-02-23] MEDS ORDERED: BUPIVACAINE HCL/PF 0.25% (2.5MG/ML) 10 ML VIAL ONE ×3 (10:28→13:24)
[2021-02-23] MEDS ORDERED: NALOXONE HCL 0.4 MG/ML VIAL IVPUSH PRN (11:14)
[2021-02-23] MEDS ORDERED: FENTANYL/BUPIVACAINE/NS/PF - PCEA - 50 ML DISP.SYRIN EP SCH (11:15)
[2021-02-23] MEDS ORDERED: AMPICILLIN SODIUM 1 GM VIAL ONE (13:34)
[2021-02-23] MEDS ORDERED: OXYTOCIN 20 UNITS in 0.9% NS 20 UNIT/1,000 ML INFUS.BAG IV ONE (13:34)
[2021-02-23] MEDS ORDERED: AMPICILLIN - 1 GM in SODIUM CHLORIDE 100 ML IVPB SCH (13:53)
[2021-02-23] MEDS ORDERED: BENZOCAINE 20% 57 GM BOTTLE TP PRN (15:16)
[2021-02-23] MEDS ORDERED: BISACODYL 10 MG SUPP.RECT RC PRN (15:16)
[2021-02-23] MEDS ORDERED: oxyCODONE HCL 5 MG TABLET PO PRN (15:16)
[2021-02-23] MEDS ORDERED: BENZOCAINE 28 GM HEMORRHOIDAL OINTMENT TP PRN (15:16)
[2021-02-23] MEDS ORDERED: WITCH HAZEL 50% (TUCKS) 40 PAD/JAR PAD TP PRN (15:16)
[2021-02-23] MEDS ORDERED: METHYLERGONOVINE MALEATE 0.2 MG/1 ML AMP IM PRN (15:16)
[2021-02-23] MEDS ORDERED: PCA PUMP NR ONE (15:24)
[2021-02-23] MEDS ORDERED: OXYTOCIN 20 UNITS in 0.9% NS 20 UNIT/1,000 ML INFUS.BAG IV SCH (15:30)
[2021-02-23] MEDS: IBUPROFEN 600 MG TABLET (FP) PO PRN ×2 (15:51→19:53)
[2021-02-24] MEDS: IBUPROFEN 600 MG TABLET (FP) PO PRN (06:38)
[2021-02-24 08:03] LABS: BASO % 0.4 % (0-2.0); EOS % 0.8 % (0-4.5); HEMATOCRIT 23.5 % (32.4-45.2); HEMOGLOBIN 7.9 GM/dL (10.7-15.3); MCHC 33.7 g/dl (32.0-36.0); MEAN CELL VOLUME 86.1 fl (80-96); MEAN PLT VOLUME 8.6 fl (7.5-11.1); MONO % 4.9 % (3.8-10.2); NEUT % 77.9 % (42.8-82.8); PLATELET COUNT 210 10^3/uL (134-434); RBC 2.73 M/mm3 (3.60-5.2); RDW 15.3 % (11.6-15.6); WHITE BLOOD COUNT 11.6 K/mm3 (4.0-10.0)
[2021-02-24] MEDS: ACETAMINOPHEN 325 MG TABLET (FP) PO PRN ×3 (09:56→22:59)
[2021-02-24 21:04] VITALS: TEMP 98
[2021-02-24] MEDS ORDERED: SENNOSIDES/DOCUSATE COMBO (SENNA PLUS) TABLET (UD) PO PRN (22:00)
[2021-02-25] MEDS: IBUPROFEN 600 MG TABLET (FP) PO PRN ×2 (01:00→09:02)
[2021-02-25 10:45] VITALS: BP 102/63; PULSE 78
== END 2021-02-25 13:45 | disposition home or self-care (01) | DRG 560 ==
LOC: JLDR 07:35 → J3W 15:33
PROVIDERS: ADMIT Specialist; ATTEND Specialist
PROC: 0HQ9XZZ Repair Perineum Skin, External Approach (ICD-10-PCS; principal; 2021-02-23)
PROC: 10E0XZZ Delivery of Products of Conception, External Approach (ICD-10-PCS; 2021-02-23)
DX: O70.0 First degree perineal laceration during delivery (principal); O77.0 Labor and delivery complicated by meconium in amniotic fluid; Z3A.39 39 weeks gestation of pregnancy; Z37.0 Single live birth
CPT/HCPCS: 36415; 59409; 80053; 85025; 85027; 86780; 86850; 86900; 86901; 87389; C9803; U0003; U0005